=== PATIENT | male | born 1980 | race Two or more races ===

== ENCOUNTER 2021-10-15 13:12 | Emergency (ER) | payer OTHER ==
[~2021-10-15] VITALS: Ht 165.1 cm; Wt 122.5 kg
[2021-10-15 14:06] LABS: BASOPHILS # (AUTO) 0.1 K/uL (0.0-0.2); EOSINOPHILS % (AUTO) 4.1 % (0.0-6.0); HEMATOCRIT 41 % (39-51); HEMOGLOBIN 13.5 g/dL (13.5-17.5); LYMPHOCYTES # (AUTO) 3.4 K/uL (0.8-4.8); LYMPHOCYTES % (AUTO) 29.7 % (20.0-44.0); MEAN CORPUSCULAR HGB CONC 33 g/dl (31.0-36.0); MEAN CORPUSCULAR VOLUME 88 fL (80-96); MONOCYTES # (AUTO) 0.7 K/uL (0.1-1.30); MONOCYTES % (AUTO) 6.2 % (2.0-12.0); NEUTROPHILS # (AUTO) 6.8 K/uL (1.8-8.9); PLATELET COUNT (AUTO) 204 K/uL (150-450); RED BLOOD CELL COUNT(AUTO) 4.63 MIL/uL (4.5-6.0); WHITE BLOOD COUNT (AUTO) 11.6 K/uL (4.3-11.0)
[2021-10-15 14:36] LABS: BILIRUBIN,URINE NEGATIVE (NEGATIVE); LEUKOCYTE ESTERASE ,URINE NEGATIVE (NEGATIVE); NITRITE, URINE NEGATIVE (NEGATIVE); PH,URINE 6.5 (5.0-8.0); PROTEIN,URINE NEGATIVE (NEGATIVE); UGLUCOSE NEGATIVE (NEGATIVE); UROBILINOGEN,URINE 0.2 EU/dL (0.2)
[2021-10-15 14:37] LABS: COLOR,URINE STRAW (YELLOW)
[2021-10-15 14:39] LABS: CALCIUM, SERUM 7.8 mg/dL (8.5-10.1); CARBON DIOXIDE 22 mmol/L (21-32); CHLORIDE 104 mmol/L (98-107); CREATININE 0.7 mg/dL (0.6-1.3); GLUCOSE 126 mg/dL (74-106); POTASSIUM 3.7 mmol/L (3.5-5.1); SODIUM SERUM 137 mmol/L (136-145); UREA NITROGEN, BLOOD 4 mg/dL (7-18)
[2021-10-15 14:46] LABS: ALANINE AMINOTRANSFERASE 65 U/L (12-78); ALBUMIN 3.3 g/dL (3.4-5.0); ALCOHOL, BLOOD 148 mg/dL (0-0); ALKALINE PHOSPHATASE 109 U/L (46-116); ASPARTATE AMINOTRANSFERASE 37 U/L (15-37); BILIRUBIN,DIRECT 0.1 mg/dL (0.0-0.2); BILIRUBIN,TOTAL 0.3 mg/dL (0.2-1.0); TOTAL PROTEIN, SERUM 7.5 g/dL (6.4-8.2)
[2021-10-15 14:58] LABS: ACETAMINOPHEN < 2 ug/ml (10-30)
--- NOTE | 2021-10-15 15:11 | NUR ---
SS Note: Pt. Is a 41-year-old White male who demonstrates adequate insight to the reason for hospitalization. Per pt., he presented himself to hospital for suicidal. Pt. was oriented x3, alert, and cooperative. During interview, pt. was capable of following directions, made appropriate eye-contact, and appeared groomed. Pt.'s speech was at a normal rate and pt.'s mood was depressed. Pt. stated that his best friend couple days ago, so he has been depressed. Pt. reported no hx of substance abuse, or homicidal ideation. Pt. denies visual hallucinations, paranoia, or delusions. Pt. stated that he has auditory hallucinations. The voices are telling him "it's your fault." Pt. has depression and anxiety. SW explored pt.'s living situation. Per pt., he lives alone [[id number] [place] [address]]. Per pt., he reports having adequate support from friends. Pt. rejected resources that were provided. Pt. [facility]. Please fax clinicals once pt. is medically cleared.
--- NOTE | 2021-10-15 15:47 | NUR ---
FAXED CLINICALS TO [facility] INTAKE.
[2021-10-15 15:53] VITALS: BP 121/69
--- NOTE | 2021-10-16 00:08 | NUR ---
PT ACCETED AT [facility] UNDER THE CARE OF DR. CAPELLAN. CALL [phone] FOR REPORT
--- NOTE | 2021-10-16 00:10 | NUR ---
[facility] ETA 75-90 MIN
--- NOTE | 2021-10-16 01:15 | NUR ---
REPORT GIVEN TO DON RN CHRISTMAS [employer] FOR [facility] AT [facility]
--- NOTE | 2021-10-16 01:25 | NUR ---
[facility] AT BEDSIDE FOR PATIENT TRANSPORT TO [facility]. REPORT GIVEN TO MAINTENANCE JOB TITLES. PT IS IN STABLE CONDITION FOR TRANSPORT.
--- NOTE | 2021-10-16 01:29 | NUR ---
PT LEFT ON GURNEY WITH 2 COST CLERK ON STABLE CONDITION. ALL BELONGINGS WERE GIVEN TO COST CLERK
== END 2021-10-16 01:31 ==
LOC: ER 13:39
DX: R45.851 Suicidal ideations (principal); Z20.822 Contact with and (suspected) exposure to COVID-19; F32.A Depression, unspecified
CPT/HCPCS: 36415; 80048; 80076; 80143; 80307; 80320; 81003; 85025; 87426; 99285; C9803; G0480